=== PATIENT | female | born 1960 | race Native Hawaiian/Other Pacific Islander ===

== ENCOUNTER → 2017-06-30 | Outpatient (CLI) | payer BC ==
--- NOTE | 2017-07-07 16:02 | MAM ---
EXAM DESCRIPTION: 3D Screening BILATERAL CLINICAL HISTORY: 56 yearsFemaleSCREENING . No complaints. No family history of breast cancer. Postmenopausal after hysterectomy, has taken HRT 5 or more years ago. Bilateral breast augmentation. COMPARISON: Prior studies at outside imaging facility is not yet available. No prior reports available. TECHNIQUE: Bilateral CC and MLO projection full-field images, with [employer] 3-D tomosynthesis digital mammographic technique. Also bilateral synthesized CC/ MLO full-field images , with [employer],. CAD not utilized. 2-D digital full-field images, MLO and CC projections bilaterally, non-displaced, with CAD. FINDINGS: The breast parenchymal density pattern is: Scattered areas of fibroglandular density. No skin thickening or nipple retraction bilaterally. Bilateral solitary microcalcifications. Bilateral saline implants are retromuscular. Multiple folds are noted in the capsule of the left breast implant. No focal, stellate mass or density no focal asymmetry, and no suspicious microcalcifications bilaterally IMPRESSION: BI-RADS CATEGORY: 0 - INCOMPLETE- Need prior mammograms for comparison. FOLLOW-UP: Comparison with prior examination(s) when available. Written communication explaining the results and follow-up will be mailed to the patient and referring care provider. Electronically signed by: Miguel Gilmore MD 07/07/2017 4:01 PM [employer]
== END ==
LOC: MAMMO 14:49
PROVIDERS: ATTEND Obstetrics & Gynecology
DX: Z12.31 Encounter for screening mammogram for malignant neoplasm of breast (principal)
CPT/HCPCS: 77063; G0202

== ENCOUNTER → 2017-07-02 | Outpatient (CLI) | payer BC | END | disposition home or self-care (01) | LOC: CC 10:48 | PROVIDERS: ATTEND Obstetrics & Gynecology | DX: Z00.00 Encounter for general adult medical examination without abnormal findings (principal) ==

== ENCOUNTER → 2017-10-30 | Outpatient (CLI) | payer OTHER ==
--- NOTE | 2017-10-30 12:46 | RAD ---
EXAM DESCRIPTION: Pelvis CLINICAL HISTORY: 57 years Female, HIP PN COMPARISON: None. TECHNIQUE: Single AP view of the pelvis and hips. FINDINGS: Pelvis appears intact. Mild degenerative changes at the pubic symphysis. No hip fracture or dislocation. Few pelvic phleboliths are present. IMPRESSION: Negative. Electronically signed by: Anand Pascual MD 10/30/2017 12:45 PM CDT
--- NOTE | 2017-10-30 12:49 | RAD ---
EXAM DESCRIPTION: Knee,Left Complete CLINICAL HISTORY: 57 years, Female, KNEE PN COMPARISON: None TECHNIQUE: 4 views of the left knee including standing view FINDINGS: No fracture or dislocation. Bones appear normally mineralized for age with normal trabecular pattern. Narrowed appearance of the medial compartment on frontal view. Mild joint line spurring with spurring at the tibial spine. Lateral view shows normal position of the patella. Mild posterior patellar spurring is present. No suprapatellar knee joint effusion. Normal contour of quadriceps and patellar tendons. Spurring is seen at the anterior and posterior aspects of the tibial surface. No abnormal patellar tilt or subluxation on patellar sunrise view. Mild medial anterior femoral trochlear spurring. IMPRESSION: Degenerative changes as described. Electronically signed by: Anand Pascual MD 10/30/2017 12:48 PM CDT
== END ==
LOC: RAD 08:51
PROVIDERS: ATTEND Orthopaedic Surgery
DX: M25.562 Pain in left knee (principal); M25.552 Pain in left hip

== ENCOUNTER → 2019-04-22 | Outpatient (CLI) | payer OTHER ==
--- NOTE | 2019-04-23 08:22 | MRI ---
Study: MRI of the Left Knee. Indication: OSTEOARTHRITIS OF THE KNEE Technique: Multiplanar, multi sequence MRI of the left knee was obtained without intravenous contrast. Comparison: None. Findings: ACL, PCL, lateral collateral ligament complex intact. Remote grade 1-2 MCL sprain has occurred. Ligament thickened proximally with mild interstitial fissuring. It is lax and bowed. Interdigitating deep to the ligament is a large para meniscal cyst measuring up to 44 mm craniocaudal by 12 mm AP by 11 mm transverse. Prominent oblique undersurface tearing posterior horn and body medial meniscus. Body extruded by 6 mm with radial free edge tearing as well. Adjacent grade 4 chondrosis medial most margin medial compartment with cortical remodeling and subchondral marrow change. Additional grade 3 chondral loss throughout the compartment. Prominent subchondral marrow change posterior margin medial tibial plateau. Radial free edge tearing body lateral meniscus. Patchy grade 2-3 chondrosis lateral compartment. Patellofemoral extensor mechanism intact. Patella normally located. Grade 4 chondral loss of the medial patellar facet and apex. Moderate size knee effusion. No acute fracture. Impression: Complex multidirectional tearing posterior horn and body medial meniscus with a large para meniscal cyst intimately associated with the MCL. Prior grade 1 MCL sprain. Radial free edge tearing body lateral meniscus. Tricompartmental chondrosis, most pronounced at the medial and patellofemoral compartments with areas of grade 3/4 chondral loss. Moderate size knee effusion. Additional findings as above. Electronically signed by: Lorenzo Rondon MD 04/23/2019 8:20 AM CDT
== END ==
LOC: MRI 08:48
PROVIDERS: ATTEND Orthopaedic Surgery
DX: M17.12 Unilateral primary osteoarthritis, left knee (principal); S83.242A Other tear of medial meniscus, current injury, left knee, initial encounter; S83.282A Other tear of lateral meniscus, current injury, left knee, initial encounter; S83.412A Sprain of medial collateral ligament of left knee, initial encounter; M94.262 Chondromalacia, left knee; M25.462 Effusion, left knee

== ENCOUNTER 2019-05-04 06:12 | Day surgery (SDC) | payer OTHER ==
--- NOTE | 2019-04-26 11:43 | RAD ---
EXAM DESCRIPTION: Chest,2 Views CLINICAL HISTORY: PRE-SURG EVALUATION COMPARISON: None TECHNIQUE: PA/lateral FINDINGS: There is no acute appearing cardiac or pulmonary abnormality. Heart size is normal with normal pulmonary vascularity. No pleural effusion or pneumothorax. Lungs are clear with no consolidating infiltrate. Lateral view shows intact sternum and T-spine. IMPRESSION: No acute process is identified in the chest. Electronically signed by: Anand Pascual MD 04/26/2019 11:42 AM CDT
[~2019-05-04 06:12] MED LIST: LACTATED RINGERS 1,000 ML ONE; SODIUM CHL 0.9% 100ML MINI-BAG 100 ML IVPB ONE; ceFAZolin SODIUM 1 GM VIAL ONE
[2019-05-04] MEDS ORDERED: KETAMINE HCL 100 MG/ML VIAL ONE (06:33)
[2019-05-04] MEDS ORDERED: MIDAZOLAM INJ 2 MG/2 ML VIAL ONE (06:33)
[2019-05-04] MEDS ORDERED: HYDROmorphone HCL INJ 2 MG/ML VIAL ONE (06:33)
[2019-05-04] MEDS ORDERED: VANCOMYCIN HCL INJ 1,000 MG VIAL IVPB ONE (06:40)
[2019-05-04] MEDS ORDERED: ceFAZolin SODIUM 1 GM VIAL ONE (06:40)
[2019-05-04] MEDS ORDERED: BUPIVACAINE LIPOSOME 13.3 MG/ML VIAL INJ ONE (06:41)
[2019-05-04] MEDS: BUPIVACAINE 0.5% 30 ML VIAL INJ ONE ×2 (07:15→08:05)
[2019-05-04] MEDS: HYDROmorphone HCL INJ 2 MG/ML VIAL ONE ×3 (08:43→09:03)
[2019-05-04 09:58] VITALS: O2SAT 94
[2019-05-04] MEDS ORDERED: HYDROcodone 5MG/APAP 325MG 1 EA TAB ONE (09:59)
[2019-05-04] MEDS ORDERED: SODIUM CHLORIDE 0.9% 50 ML VIAL INJ ONE (10:00)
[2019-05-04] MEDS ORDERED: PROPOFOL 200 MG/20 ML VIAL IV ONE (10:00)
[2019-05-04] MEDS ORDERED: raNITIdine HCL INJ 25 MG/ML VIAL IV ONE (10:00)
[2019-05-04] MEDS ORDERED: LIDOCAINE 1% 10 ML VIAL INJ ONE (10:00)
[2019-05-04] MEDS ORDERED: DEXAMETHASONE INJ 10 MG/ML VIAL IV ONE (10:00)
[2019-05-04] MEDS ORDERED: KETOROLAC TROMETHAMINE INJ 30 MG/ML VIAL IV ONE (10:00)
[2019-05-04 11:06] VITALS: BP 141/81; TEMP 97.4
--- NOTE | 2019-05-05 08:35 | OP ---
DATE OF PROCEDURE: 05/04/19 PREOPERATIVE DIAGNOSIS: 1. Meniscus tear. 2. Osteoarthritis. POSTOPERATIVE DIAGNOSIS: 1. Complex tear of the medial meniscus involving the posterior body. 2. Osteoarthritis. PROCEDURE: 1. Partial meniscectomy. 2. Debridement. SURGEON: Raymundo Aleman MD. POTATO SORTER: Miguel De La Torre CST, SA-C. ANESTHESIA: General anesthesia. COMPLICATIONS: None. FINDINGS: 1. Complex tearing of the medial meniscus with a flap tear of the midbody and horizontal tear extending into the posterior body. 2. Advanced cartilage degradation in the medial compartment. 3. Normal ACL, normal PCL. 4. Grade 3 to 4 cartilaginous changes in the lateral compartment. 5. Degenerative fraying of the lateral meniscus. 6. Normal lateral gutter. 7. Normal suprapatellar pouch. 8. Full thickness cartilaginous loss on the articular surface of the patella. 9. Advanced degenerative changes in the femoral trochlea. 10. Normal medial gutter. INDICATION: Ms. Man has a history of pain associated with her knee that has been now refractory to conservative measures. She has had multiple interventions which have included injections of steroid and Synvisc. She has had oral anti-inflammatories. Because of her ongoing symptoms as well as the development of mechanical symptoms, she has requested operative intervention. After discussing the risks, benefits and alternatives to operative intervention, the patient has given informed consent for that. PROCEDURE: The patient was brought to the Operating Room and placed in supine position. General anesthesia was induced and the patient's leg was sterilely prepped and draped. Following prepping and draping, standard anteromedial and anterolateral portals were established. Diagnostic arthroscopy was carried out with the above findings. Attention was then focused on the medial compartment. A 3.5 mm full radius shaver was used to debride the medial meniscus. It was thoroughly probed to ensure complete stability. Attention was then focused on the cartilaginous surfaces of the medial compartment and patellofemoral compartment. An accessory superolateral portal was established and the patellar surface was debrided. The medial femoral condyle was debrided. Both areas were thoroughly probed to ensure there were no remaining cartilaginous flaps or unstable fragments. The knee was thoroughly irrigated and drained. Following draining of the knee, the wounds were closed with Nylon suture. Sterile dressings were placed. The patient was awoken from anesthesia and taken to Recovery. POSTOPERATIVE PLAN: The patient will be partial weightbearing and will followup with us in approximately two days. #[id number] MTDD
== END 2019-05-04 10:55 | disposition home or self-care (01) ==
LOC: AMB 06:12
PROVIDERS: ATTEND Orthopaedic Surgery
DX: S83.232A Complex tear of medial meniscus, current injury, left knee, initial encounter (principal); M17.12 Unilateral primary osteoarthritis, left knee; Z90.710 Acquired absence of both cervix and uterus; Z90.49 Acquired absence of other specified parts of digestive tract
CPT/HCPCS: 01400; 29881; 71046; 80048; 80307; 81001; 85025; 87070; 93005; A4216; J0690; J1100; J1170; J1885; J2250; J2780; J3370; J3490; J7050; J7120